=== PATIENT | male | born 1970 | race Caucasian/White ===

== ENCOUNTER 2017-12-09 07:39 | Day surgery (SDC) | payer OTHER ==
[~2017-12-09] VITALS: Ht 182.9 cm; Wt 67.3 kg
[2017-12-09 08:10] VITALS: BP 118/80; PULSE 55; TEMP 97.6
[2017-12-09 11:45] VITALS: BP 125/82; PULSE 72; TEMP 97.9
[2017-12-09 12:00] VITALS: BP 115/76; PULSE 72
[2017-12-09 12:15] VITALS: BP 111/71; PULSE 67
[2017-12-09] MEDS ORDERED: NORCO 325 MG-51 TAB PO (12:15)
[2017-12-09 12:30] VITALS: BP 102/68; PULSE 79
== END 2017-12-09 13:32 | disposition home or self-care (01) ==
LOC: SDCO 07:39
DX: Q43.3 Congenital malformations of intestinal fixation (principal); K46.9 Unspecified abdominal hernia without obstruction or gangrene; Z87.19 Personal history of other diseases of the digestive system
CPT/HCPCS: J0360; J0690; J1100; J1885; J2405; J2550; J2704; J3010; J7120